=== PATIENT | male | born 1975 | race Caucasian/White ===

== ENCOUNTER 2025-01-28 06:58 | Emergency (ER) | payer MEDICAID ==
[~2025-01-28] VITALS: Ht 160 cm; Wt 91.0 kg
[2025-01-28 07:01] VITALS: O2SAT 97
[2025-01-28] MEDS: ACETAMINOPHEN 325MG TABLET PO ONE (07:42)
[2025-01-28] MEDS ORDERED: TOPUD PO (08:49)
[2025-01-28 09:28] VITALS: BP 117/69; PULSE 73; RESP 20; TEMP 36.7; O2SAT 97
== END 2025-01-28 09:32 | disposition home or self-care (01) ==
LOC: ER 06:58
DX: R07.89 Other chest pain (principal); M25.511 Pain in right shoulder
CPT/HCPCS: 71045; 73030; 99284; A4606